=== PATIENT | female | born 1995 | race Caucasian/White ===

== ENCOUNTER 2017-02-28 06:23 | Emergency (ER) | payer BC ==
[2017-02-28 07:37] LABS: Appearance,Urine Clear (Clear); Bilirubin,Urine Negative (Negative); Glucose,Urine (UA) Negative (Negative); Ketones,Urine Trace (Negative); Leukocyte Esterase,Urine Negative (Negative); Nitrite,Urine Negative (Negative); Protein,Urine Negative (Negative); Specific Gravity,Urine 1.003 (1.001-1.035); UA Billing (MACRO vs. MICRO) CHEM; Urobilinogen,Urine <2.0 mg/dL (<2.0)
[2017-02-28] MEDS ORDERED: SODIUM CHLORIDE 0.9% 1,000 ML IV STA (08:10)
--- NOTE | 2017-02-28 08:10 | ED ---
Abdominal Pain HPI - General Chief Complaint: Abdominal Pain Stated Complaint: kidney pain Time Seen by Provider: 02/28/17 07:00 Source: patient, RN notes reviewed Mode of arrival: ambulatory Limitations: no limitations - History of Present Illness Initial Comments: This is a 23-year-old female with a prior history of urinary tract infections who states she's been having urinary symptoms with frequency urgency and kidney pain for the past week or so. She was seen in outpatient clinic yesterday started on Bactrim but she had ALLERGIC reaction to it so quit taking it. She does also states she had fevers chills and sweats yesterday. She also states she has some right lower quadrant abdominal discomfort. No hematuria. No other symptoms are reported. She denies any chance of being her last period was in January. MD Complaint: flank pain - Related Data Home Medications Medication Instructions Recorded Confirmed Phentermine HCl [Adipex-P] 37.5 mg PO QAM 02/28/17 02/28/17 Previous Rx's Medication Instructions Recorded Cephalexin [Keflex] 500 mg PO Q6HR #40 cap 02/28/17 Ibuprofen 800 mg PO Q6HR PRN #20 tablet 02/28/17 Allergies Allergy/AdvReac Type Severity Reaction Status Date / Time sulfamethoxazole Allergy Rash/Hives Verified 02/28/17 07:52 [From Bactrim] trimethoprim [From Bactrim] Allergy Rash/Hives Verified 02/28/17 07:52 Review of Systems ROS Statement: Those systems with pertinent positive or pertinent negative responses have been documented in the HPI. ROS Other: All systems not noted in ROS Statement are negative. Past Medical History Past Medical History: No Reported History History of Any Multi-Drug Resistant Organisms: None Reported Past Surgical History: No Surgical Hx Reported Past Psychological History: No Psychological Hx Reported Smoking Status: Never smoker Past Alcohol Use History: Rare Past Drug Use History: None Reported General Exam - General Exam Comments Initial Comments: This is a well-developed well-nourished awake alert oriented 3 female Limitations: no limitations General appearance: alert, in no apparent distress Head exam: Present: atraumatic, normocephalic, normal inspection Eye exam: Present: normal appearance, PERRL, EOMI. Absent: scleral icterus, conjunctival injection, periorbital swelling ENT exam: Present: normal exam, mucous membranes moist Neck exam: Present: normal inspection. Absent: tenderness, meningismus, lymphadenopathy Respiratory exam: Present: normal lung sounds bilaterally. Absent: respiratory distress, wheezes, rales, rhonchi, stridor Cardiovascular Exam: Present: normal rhythm, tachycardia, normal heart sounds. Absent: systolic murmur, diastolic murmur, rubs, gallop, clicks GI/Abdominal exam: Present: soft, tenderness (Mild suprapubic right and left lower quadrant tenderness no guarding no rebound no definite McBurney point tenderness no Rovsing sign no obturator sign), normal bowel sounds. Absent: distended, guarding, rebound, rigid Rectal exam: Present: deferred Extremities exam: Present: normal inspection, full ROM, normal capillary refill. Absent: tenderness, pedal edema, joint swelling, calf tenderness Back exam: Present: normal inspection, CVA tenderness (R) Neurological exam: Present: alert, oriented X3, CN II-XII intact Psychiatric exam: Present: normal affect, normal mood Skin exam: Present: warm, dry, intact, normal color. Absent: rash Course Vital Signs 02/28/17 06:30 Temperature 98.4 F Pulse Rate 109 H Respiratory 20 Rate Blood Pressure 128/75 O2 Sat by Pulse 98 Oximetry Medical Decision Making - Medical Decision Making I did discuss findings with the patient and family members or present. Patient will be discharged she'll be placed on antibiotics and symptomatically she appears have a urinary tract infection also ibuprofen for pain she is follow-up with her doctor and return when necessary - Lab Data Result diagrams: 02/28/17 07:02 02/28/17 07:02 Lab Results 02/28/17 02/28/17 02/28/17 Range/Units 07:02 07:02 07:02 WBC 8.6 (3.8-10.6) k/uL RBC 4.83 (3.80-5.40) m/uL Hgb 14.5 (11.4-16.0) gm/dL Hct 42.2 (34.0-46.0) % MCV 87.4 (80.0-100.0) fL MCH 30.0 (25.0-35.0) pg MCHC 34.3 (31.0-37.0) g/dL RDW 13.6 (11.5-15.5) % Plt Count 206 (150-450) k/uL Neutrophils % 79 % Lymphocytes % 12 % Monocytes % 6 % Eosinophils % 2 % Basophils % 0 % Neutrophils # 6.8 (1.3-7.7) k/uL Lymphocytes # 1.0 (1.0-4.8) k/uL Monocytes # 0.5 (0-1.0) k/uL Eosinophils # 0.2 (0-0.7) k/uL Basophils # 0.0 (0-0.2) k/uL Sodium 143 (137-145) mmol/L Potassium 4.2 (3.5-5.1) mmol/L Chloride 106 (98-107) mmol/L Carbon Dioxide 24 (22-30) mmol/L Anion Gap 13 mmol/L BUN 5 L (7-17) mg/dL Creatinine 0.67 (0.52-1.04) mg/dL Est GFR (MDRD) Af Amer >60 (>60 ml/min/1.73 sqM) Est GFR (MDRD) Non-Af >60 (>60 ml/min/1.73 sqM) Glucose 87 (74-99) mg/dL Calcium 9.6 (8.4-10.2) mg/dL Total Bilirubin 0.7 (0.2-1.3) mg/dL AST 27 (14-36) U/L ALT 17 (9-52) U/L Alkaline Phosphatase 65 (38-126) U/L Total Protein 8.1 (6.3-8.2) g/dL Albumin 4.5 (3.5-5.0) g/dL Amylase 64 (30-110) U/L Lipase 53 (23-300) U/L Urine Color Light Yellow Urine Appearance Clear (Clear) Urine pH 7.0 (5.0-8.0) Ur Specific Star 1.003 (1.001-1.035) Urine Protein Negative (Negative) Urine Glucose (UA) Negative (Negative) Urine Ketones Trace H (Negative) Urine Blood Negative (Negative) Urine Nitrite Negative (Negative) Urine Bilirubin Negative (Negative) Urine Urobilinogen <2.0 (<2.0) mg/dL Ur Leukocyte Esterase Negative (Negative) Urine HCG, Qual (Not Detectd) 02/28/17 Range/Units 07:02 WBC (3.8-10.6) k/uL RBC (3.80-5.40) m/uL Hgb (11.4-16.0) gm/dL Hct (34.0-46.0) % MCV (80.0-100.0) fL MCH (25.0-35.0) pg MCHC (31.0-37.0) g/dL RDW (11.5-15.5) % Plt Count (150-450) k/uL Neutrophils % % Lymphocytes % % Monocytes % % Eosinophils % % Basophils % % Neutrophils # (1.3-7.7) k/uL Lymphocytes # (1.0-4.8) k/uL Monocytes # (0-1.0) k/uL Eosinophils # (0-0.7) k/uL Basophils # (0-0.2) k/uL Sodium (137-145) mmol/L Potassium (3.5-5.1) mmol/L Chloride (98-107) mmol/L Carbon Dioxide (22-30) mmol/L Anion Gap mmol/L BUN (7-17) mg/dL Creatinine (0.52-1.04) mg/dL Est GFR (MDRD) Af Amer (>60 ml/min/1.73 sqM) Est GFR (MDRD) Non-Af (>60 ml/min/1.73 sqM) Glucose (74-99) mg/dL Calcium (8.4-10.2) mg/dL Total Bilirubin (0.2-1.3) mg/dL AST (14-36) U/L ALT (9-52) U/L Alkaline Phosphatase (38-126) U/L Total Protein (6.3-8.2) g/dL Albumin (3.5-5.0) g/dL Amylase (30-110) U/L Lipase (23-300) U/L Urine Color Urine Appearance (Clear) Urine pH (5.0-8.0) Ur Specific Star (1.001-1.035) Urine Protein (Negative) Urine Glucose (UA) (Negative) Urine Ketones (Negative) Urine Blood (Negative) Urine Nitrite (Negative) Urine Bilirubin (Negative) Urine Urobilinogen (<2.0) mg/dL Ur Leukocyte Esterase (Negative) Urine HCG, Qual Not Detected (Not Detectd) - Radiology Data Radiology results: report reviewed (I did review the imaging and reports no definite acute findings.), image reviewed Disposition Clinical Impression: Cystitis, Renal colic Disposition: HOME SELF-CARE Condition: Good Instructions: Renal Colic (ED), Flank Pain (ED), Urinary Tract Infection in Women (ED) Prescriptions: Cephalexin [Keflex] 500 mg PO Q6HR #40 cap Ibuprofen 800 mg PO Q6HR PRN #20 tablet PRN Reason: Pain Referrals: Arlen Carmichael MD [Primary Care Provider] - 1-2 days
[2017-02-28 08:20] LABS: Basophils % (A) 0 %; CH 29.5; CHCM 33.9; Eosinophils # (A) 0.2 k/uL (0-0.7); Eosinophils % (A) 2 %; HCT 42.2 % (34.0-46.0); HDW 2.64; HGB 14.5 gm/dL (11.4-16.0); Luc # (Auto) 0.09; Luc % (Auto) 1; Lymphocytes % (A) 12 %; MCHC 34.3 g/dL (31.0-37.0); MCV 87.4 fL (80.0-100.0); Mean Platelet Volume 7.7; Monocytes # (A) 0.5 k/uL (0-1.0); Monocytes % (A) 6 %; Neutrophils # (A) 6.8 k/uL (1.3-7.7); Neutrophils % (A) 79 %; RBC 4.83 m/uL (3.80-5.40); RDW 13.6 % (11.5-15.5); WBC 8.6 k/uL (3.8-10.6); WBC (Perox) 8.32
--- NOTE | 2017-02-28 08:39 | XR ---
EXAMINATION TYPE: XR KUB DATE OF EXAM: 02/28/2017 8:23 AM CLINICAL HISTORY: Bilateral flank pain. TECHNIQUE: 2 upright KUB images of the abdomen are obtained. COMPARISON: Abdominal x-ray July 09, 2014. FINDINGS: Scattered gas is seen in non-distended small bowel loops. Gas and fecal material is seen in non-distended colon. There is no visceromegaly, pneumoperitoneum, or abnormal calcification apprecia alberto. The lung bases are clear and the osseous structures are intact. IMPRESSION: Overall nonobstructive bowel gas pattern.
[2017-02-28 08:59] LABS: ALT 17 U/L (9-52); AST 27 U/L (14-36); Alkaline Phosphatase 65 U/L (38-126); Anion Gap 13 mmol/L; Blood Urea Nitrogen 5 mg/dL (7-17); Calcium 9.6 mg/dL (8.4-10.2); Carbon Dioxide 24 mmol/L (22-30); Chloride 106 mmol/L (98-107); Glucose 87 mg/dL (74-99); Non-African American GFR(MDRD) >60 (>60 ml/min/1.73 sqM); Sodium 143 mmol/L (137-145); Total Bilirubin 0.7 mg/dL (0.2-1.3); Total Protein 8.1 g/dL (6.3-8.2)
[2017-02-28 09:11] LABS: Potassium 4.2 mmol/L (3.5-5.1)
[2017-02-28 09:12] LABS: Amylase 64 U/L (30-110)
[2017-02-28] MEDS ORDERED: KETOROLAC 30 MG/ML 1 ML VIAL IVP STA (09:27)
--- NOTE | 2017-02-28 09:54 | CT ---
EXAMINATION TYPE: CT abdomen pelvis wo con DATE OF EXAM: 02/28/2017 COMPARISON: NONE HISTORY: Right sided abdominal pain CT DLP: 901 mGycm Automated exposure control for dose reduction was used. TECHNIQUE: Helical acquisition of images from the lung bases through the pelvis. FINDINGS: Lack of contrast could compromise sensitivity LUNG BASES: No significant abnormality is appreciated. AORTA: No significant abnormality is appreciataed. LIVER/GB: No significant abnormality is appreciated. PANCREAS: No significant abnormality is seen. SPLEEN: No focal mass. ADRENALS: No significant abnormality is seen. KIDNEYS: No significant abnormality is seen. REPRODUCTIVE ORGANS: No significant abnormality is seen. URINARY BLADDER: No significant abnormality is seen. BOWEL: Luminal high density within the appendix present, there is no inflammatory change or distenti on however. FREE AIR: No Free Air is visible. ASCITES: Minimal free fluid present within the pelvis. This may be physiologic. PELVIC ADENOPATHY: None visualized. RETROPERITONEAL ADENOPATHY: No Retroperitoneal Adenopathy visible. OSSEOUS STRUCTURES: No significant abnormality is seen. IMPRESSION: NONSPECIFIC FINDINGS DESCRIBED ABOVE.
[2017-02-28 10:43] VITALS: BP 122/59; PULSE 83; RESP 18; TEMP 98.3
== END 2017-02-28 10:43 | disposition home or self-care (01) ==
LOC: EC 06:23
DX: N30.90 Cystitis, unspecified without hematuria (principal); N23 Unspecified renal colic; Z79.899 Other long term (current) drug therapy; Z88.2 Allergy status to sulfonamides
CPT/HCPCS: 36415; 80053; 82150; 83690; 85025; 81003; 81025; 87086; 74000; 74176; 99284; 96374; 96361 ×2; J1885

== ENCOUNTER 2017-11-18 09:18 | Outpatient (CLI) | payer BC ==
[2017-11-18 11:27] VITALS: BP 141/82; PULSE 88; RESP 16; TEMP 98.1
--- NOTE | 2017-11-18 13:50 | P.MSEPDOC ---
Presenting Problems - Arrival Data Date of Arrival on Unit: 11/18/17 Time of Arrival on Unit: 09:30 Mode of Transport: Ambulatory - Complaint OB-Reason for Admission/Chief Complaint: Possible Onset of Labor Medical History - Information : 1 Para: 0 Term: 0 : 0 Abortions: Spontaneous or Elective: 0 Number of Living Children: 0 - Gestational Age Gestational Age by PRINCESS (wks/days): 34 Weeks and 5 Days - History Complications: Multiple Review of Systems - Review of Systems Constitutional: No problems Breast: No problems ENT: No problems Cardiovascular: No problems Respiratory: No problems Gastrointestinal: No problems Genitourinary: No problems Musculoskeletal: No problems Neurological: No problems Skin: No problems Vital Signs - Temperature Temperature: 98.1 F Temperature Source: Tympanic - Pulse Right Brachial Pulse Rate: 88 Pulse Assessment Method: Automatic Cuff - Respirations Respiratory Rate: 16 Oxygen Delivery Method: Room Air - Blood Pressure Right Arm Blood Pressure: 141/82 Blood Pressure Mean: 101 Blood Pressure Source: Automatic Cuff Medical Screen Scoring (Pre) - Cervical Exam Dilation: 0 cm = 0 Membranes: Intact - Uterine Contractions Frequency: > 5 minutes apart = 1 Duration: N/A Intensity: N/A - Maternal Vital Signs Maternal Temperature: N/A Maternal Blood Pressure: N/A Signs of Preeclampsia: N/A Maternal Respirations: N/A - Pain Assessment Pain Location and Character: Abdomen Pain Scale Used: Numeric (1 - 10) Pain Intensity: 3 Pain Management Goal: 2 Pain Description: *Acute Pain Radiation Location: na Pain Frequency: Intermittent Pain Duration: 1 Pain Duration Units: Minutes Pain Behavior: Vocalization Pain Aggravating Factors: None Non-Pharmacological Interventions: Position/Reposition, Reduce Environmental Stimuli - Maternal Trauma Maternal Trauma: N/A - Assessment Baseline FHR: 150 Heart Rate - NICHD Category: Category I (Normal) = 0 NST: Reactive Position: N/A Station: N/A - Total Score Total Score (Pre): 1 - Level of Risk Level of Risk: N/A Physician Notification (Pre) - Physician Notified Physician Notified Date: 11/18/17 Physician Notified Time: 10:40 Physician/Practitioner Notifed:: Dr. Garnica Spoke With: Dr. Garnica New Order Received: Yes - Notification Comment Comment: d/c home Disposition - Disposition OB Disposition: Discharge to home Discharge Date: 11/18/17 Discharge Time: 10:45 I agree with the RN Medical Screening Exam: Yes Risk & Benefit of care provided described in d/c instruction: Yes Diagnosis: FALSE LABOR BEFORE 37 COMPLETED WEEKS OF GEST, THIRD TRI
== END 2017-11-18 10:45 | disposition home or self-care (01) ==
LOC: FBPOP 09:18
PROVIDERS: ATTEND Obstetrics & Gynecology Obstetrics
DX: O47.1 False labor at or after 37 completed weeks of gestation (principal); Z3A.34 34 weeks gestation of pregnancy
CPT/HCPCS: 59025; 96360; 99214

== ENCOUNTER 2017-12-01 16:17 | Inpatient (IN) | payer BC, OTHER ==
[2017-12-01 17:25] LABS: Basophils % (A) 0 %; Eosinophils % (A) 1 %; HCT 30.3 % (34.0-46.0); HGB 9.9 gm/dL (11.4-16.0); Hypochromasia Slight; Lymphocytes # (A) 1.1 k/uL (1.0-4.8); Lymphocytes % (A) 14 %; MCHC 32.8 g/dL (31.0-37.0); MCV 82.4 fL (80.0-100.0); Mean Platelet Volume 9.7; Monocytes # (A) 0.4 k/uL (0-1.0); Monocytes % (A) 5 %; Neutrophils # (A) 6.3 k/uL (1.3-7.7); Neutrophils % (A) 79 %; Platelet Count 170 k/uL (150-450); RBC 3.68 m/uL (3.80-5.40); RDW 15.6 % (11.5-15.5)
[2017-12-01 17:32] LABS: Uric Acid 5.5 mg/dL (3.7-7.4)
[2017-12-01] MEDS ORDERED: LACTATED RINGERS 1,000 ML IV ONE (18:00)
[2017-12-01] MEDS ORDERED: CITRIC ACID-SODIUM CITRATE 15 ML CUP PO ONE (18:00)
[2017-12-01] MEDS ORDERED: ceFAZolin IN SWFI 2 GM/20 ML SYRINGE IVP ONE (18:00)
[2017-12-01 18:27] VITALS: BMI 38.3
[2017-12-01] MEDS ORDERED: NALBUPHINE 10 MG/ML AMPUL ONE (19:13)
[2017-12-01] MEDS ORDERED: DEXAMETHASONE SOD PHOS (MDV) 100 MG/10 ML VIAL ONE (19:13)
[2017-12-01] MEDS ORDERED: KETOROLAC 30 MG/ML 1 ML VIAL ONE (19:13)
[2017-12-01] MEDS ORDERED: diphenhydrAMINE 50 MG/ML 1 ML VIAL ONE (19:13)
[2017-12-01] MEDS ORDERED: OXYTOCIN 10 UNIT/ML 1 ML VIAL ONE (19:13)
[2017-12-01] MEDS ORDERED: fentaNYL (PF) 50 MCG/ML 2 ML AMP ONE (19:13)
[2017-12-01] MEDS ORDERED: ONDANSETRON 4 MG/2 ML VIAL ONE (19:13)
[2017-12-01] MEDS ORDERED: MORPHINE SULFATE (PF) 0.3 MG/0.3 ML SYR ONE (19:13)
--- NOTE | 2017-12-01 19:15 | P.HPOB ---
History of Present Illness H&P Date: 12/01/17 Chief Complaint: Headache, "I don't feel good" This is a 22-year-old white female 1 para 0 EDC 12/25/2017 at 36-4/7 weeks' gestation. Patient has a known twin gestation, breech vertex. Yesterday the office her blood pressure was noted to be elevated, therefore 24- hour urine collection was started along with labs ordered. Today the patient return to the office for the 24-hour urine collection, and noted that she had a headache and did not feel well. She denied visual changes or right upper quadrant pain. Both fetuses have been active. She was sent to labor and delivery for further blood pressure monitoring. Blood pressures here have varied from 139/86 on admission, 155/89, 161/101, and recently 170/98. Decision has been made at this time to proceed with primary low transverse section for breech vertex presentation of twins and severe preeclampsia. Past medical history is significant for heart murmur, asthma, and chronic constipation. Past surgical history negative. Current medications dye clean just in the first trimester, vitamin daily, probiotics daily. ALLERGIES include Bactrim to which reports an itchy fever and sweating. Family history significant for pancreatic cancer in the maternal grandmother. Social history patient is single, her boyfriend Grady is involved in the , met he lives locally, has never been a smoker and denies alcohol use. history is significant for blood type A+, rubella status immune. Hepatitis B surface antigen negative, HIV testing negative, gonorrhea and chlamydia cultures negative, Pap smear negative, urine culture negative. Most recent ultrasound reveals breech vertex presentation, good growth, normal amniotic fluid index, reactive NSTs on both babies. On exam this is a pleasant white female, she is 5 foot 6.25 inches, 250 pounds, patient is afebrile. Most recent blood pressure 170/98. The general physical exam is within normal limits. The chest is clear in all mclain. Extremities reveal 2+ edema. There are 2+ reflexes noted. Fetuses are breech, vertex. Cervix is 2 cm dilated, 70% effaced, intact membranes. Cardiac exam reveals regular rate and rhythm. Labs include uric acid 5.5, AST 20, ALTs 25, platelets 170,000. Impression: Diamniotic dichorionic twin gestation at 36-4/7 weeks' gestation, with severe preeclampsia. Breech vertex presentation. Plan: We will proceed with primary low transverse section. The risks benefits and alternatives are all discussed. We will utilize magnesium sulfate after closure of the uterus. All questions of the patient, boyfriend and her mother are answered. Review of Systems Constitutional: Reports as per HPI Ears, nose, mouth and throat: Reports headache Past Medical History Past Medical History: No Reported History Additional Past Medical History / Comment(s): anxiety History of Any Multi-Drug Resistant Organisms: None Reported Past Surgical History: No Surgical Hx Reported Past Psychological History: No Psychological Hx Reported Smoking Status: Never smoker Past Alcohol Use History: Rare Past Drug Use History: None Reported - Past Family History Mother History Unknown: Yes Medications and Allergies Home Medications Medication Instructions Recorded Confirmed Type Pnv No.95/Ferrous Fum/Folic AC 1 tab PO DAILY 12/01/17 12/01/17 History [ Multivitamin Tablet] Allergies Allergy/AdvReac Type Severity Reaction Status Date / Time sulfamethoxazole Allergy Rash/Hives Verified 12/01/17 16:30 [From Bactrim] trimethoprim [From Bactrim] Allergy Rash/Hives Verified 12/01/17 16:30 Exam - Vital Signs Vital signs: Vital Signs Temp Pulse Resp BP Pulse Ox 12/01/17 16:35 98.1 F 82 16 139/86 100 Intake and Output 12/01/17 12/01/17 12/01/17 06:59 14:59 22:59 Other: Weight 111.13 kg See dictation under HPI please Results Result Diagrams: 12/01/17 17:01 Abnormal Lab Results - Last 24 Hours (Table) 12/01/17 Range/Units 17:01 RBC 3.68 L (3.80-5.40) m/uL Hgb 9.9 L (11.4-16.0) gm/dL Hct 30.3 L (34.0-46.0) % RDW 15.6 H (11.5-15.5) % Assessment and Plan Assessment: Severe preeclampsia based on blood pressure parameters, and maternal headache. Twin gestation, breech vertex presentation, at 36-4/7 weeks' gestation. Plan: For primary low transverse section now. Magnesium sulfate prophylaxis upon closure of the uterus. All risks, benefits and alternatives discussed in detail. Time with Patient: Greater than 30
[2017-12-01] MEDS ORDERED: MAGNESIUM SULFATE-WATER PMX 4 GM in WATER FOR INJECTION 1 50ML.BAG IVPB ONE (19:21)
[2017-12-01 19:26] LABS: Collection Time,Urine 24 hrs
[2017-12-01 19:27] LABS: Total Volume 24 Hour,Urine 1350 mls (800-1800)
[2017-12-01 19:41] LABS: Creatinine 24 Hour,Urine 1532.3 mg/24hr (800.0-1800.0)
[2017-12-01 19:52] LABS: Total Protein 24 Hour,Urine 8100 mg/24hr (42.0-225.0)
[2017-12-01] MEDS ORDERED: ACETAMINOPHEN TAB 325 MG TAB PO PRN (20:20)
[2017-12-01] MEDS ORDERED: diphenhydrAMINE 50 MG CAP PO PRN (20:20)
[2017-12-01] MEDS ORDERED: ONDANSETRON 4 MG/2 ML VIAL IVP PRN (20:20)
[2017-12-01] MEDS ORDERED: ZOLPIDEM 5 MG TAB PO PRN (20:20)
[2017-12-01] MEDS ORDERED: diphenhydrAMINE 50 MG/ML 1 ML VIAL IVP PRN ×2 (20:20)
[2017-12-01] MEDS ORDERED: METOCLOPRAMIDE 5 MG/ML 2 ML VIAL IVP PRN (20:20)
[2017-12-01] MEDS ORDERED: diphenhydrAMINE 25 MG CAP PO PRN (20:20)
[2017-12-01] MEDS ORDERED: NALOXONE 0.4 MG/ML 1 ML VIAL IV PRN (20:20)
--- NOTE | 2017-12-01 20:20 | P.OP ---
Date of Procedure: 12/01/17 Preoperative Diagnosis: 36-4/7 weeks' gestation, known twin gestation, severe preeclampsia, breech vertex presentation Postoperative Diagnosis: Liveborn female baby A, breech presentation, 6 lbs. 2 oz., Apgars 8 and 9. Liveborn baby B, vertex presentation, male, 5 lbs. 3 oz., scores 9 and 9. Procedure(s) Performed: Primary low transverse section Anesthesia: spinal Surgeon: Gosia De La Vega Executive Chairman Of The Board #1: Craig Coppola Estimated Blood Loss (ml): 750 IV fluids (ml): 1,100 Urine output (ml): 150 Pathology: other (Placentas) Condition: stable Disposition: PACU Description of Procedure: Patient presented from the office with increased proteinuria, severe headache, and "not feeling good". Blood pressures were monitored over several hours, they elevated to 161/101, 170/98. Decision was made to proceed with primary low transverse section. This is a known dichorionic diamniotic with reach vertex presentations. Please see my dictated history and physical for details. Patient was brought to the [facility] and suite and a spinal with Duramorph is placed. She was then put in the dorsal supine position with left lateral uterine displacement. Clarke catheter placed to direct drainage. The appropriate timeout is performed to assure proper patient and procedural identification. The abdomen is prepped and draped in usual sterile fashion. The analgesia is checked and noted to be adequate. Antibiotics are given. A low transverse skin incision is made in this is carried down through the subcutaneous tissue. Fascia is isolated, scored, and extended bilaterally with curved Graves scissors. Peritoneum is next identified and incised, there is no bowel or bladder involvement. Bladder flap was created with Metzenbaum scissors and at all times the bladder is Well from the operative field to avoid bladder and/or ureteral injury. The large ring disposable retractors placed for excellent visualization. A low transverse uterine incision is made in this is carried down to the amniotic membranes. Artificial amniorrhexis reveals clear fluid. Baby B is delivered first, vertex presentation. There is no nuchal cord noted. Patient is officially delivered of a liveborn male at 1935 hrs. Umbilical cord is doubly clamped and ligated, he is handed to waiting nurses for evaluation where scores of 9 and 9 at one and 5 minutes respectively are given. He weighs 5 lbs. 3 oz. or 2340 g. At this time artificial amniorrhexis of baby B is performed. Clear fluid is noted. Infant is delivered in the breech presentation. Sacrum is rotated anterior. Bilateral lower extremities are delivered with a Pinard maneuver. A blue towel was wrapped over the abdomen. Over rotation is performed in the upper extremities are easily delivered. Infant's head is delivered flexed. Officially patient delivers her liveborn female at 1936 hrs. Umbilical cord is doubly clamped and ligated, she is handed to waiting nurses for evaluation where scores of 8 and 9 at one and 5 minutes respectively are given. The placentas delivered spontaneously, and sent to pathology for evaluation. The uterus is then externalized and massaged. It is wiped clean with a sterile sponge to avoid any retained products of conception. Hemostasis was very good. The edges of the incision are grasped with Choi clamps. The uterus is closed in a two-step fashion first layer running locking with 0 Vicryl, second layer with imbricated stitch again with 0 Vicryl. Bilateral tubes and ovaries are inspected and noted to be normal. Abdomen is suctioned with suction on guard. Uterus is gently placed back into the abdominal cavity. Bilateral gutters are inspected and cleaned. The incision is once again inspected and noted to be hemostatically intact. Peritoneum was allowed to close by secondary intention. Fascia is closed in a running stitch of 0 Vicryl with over ligation in the midline. Subcutaneous tissue is irrigated, noted to be clean and dry. It is reapproximated with 3-0 Vicryl in a running stitch. 4-0 undyed Monocryl issues for final skin closure. Steri-Strips and Mastisol are applied to the wound. All sponge needle and enhancement counts are correct at the end of this procedure. Clarke is noted to be draining clear urine. Blood pressure upon leaving the operating room was 140/75, pulse 91, 99% O2 saturation. Patient brought back to the recovery room in very good condition. Magnesium sulfate has been ordered, a bolus will be given now, and it was running at 2 g per hour through the night. Patient is requesting circumcision for her infant son.
[2017-12-01] MEDS: MAGNESIUM SULFATE-WATER PMX 20 GM in WATER FOR INJECTION 1 500ML.BAG IV SCH (20:59)
--- NOTE | 2017-12-02 06:51 | P.PN ---
Progress Note - Text Date:12/02 Time:630 Patient is status post . Patient seen this morning with VAS score of 3. c/o of pruritus on her face, c/o nausea/vomiting, comfortable and doing better.
[2017-12-02 06:56] LABS: Basophils % (A) 0 %; Eosinophils % (A) 0 %; HCT 31.3 % (34.0-46.0); HGB 10.3 gm/dL (11.4-16.0); Hypochromasia Slight; Lymphocytes # (A) 1.1 k/uL (1.0-4.8); Lymphocytes % (A) 6 %; MCH 27.1 pg (25.0-35.0); MCHC 32.9 g/dL (31.0-37.0); MCV 82.4 fL (80.0-100.0); Mean Platelet Volume 10.3; Monocytes # (A) 0.7 k/uL (0-1.0); Monocytes % (A) 4 %; Neutrophils # (A) 15.4 k/uL (1.3-7.7); Neutrophils % (A) 89 %; Platelet Count 185 k/uL (150-450); RDW 15.1 % (11.5-15.5); WBC 17.3 k/uL (3.8-10.6)
[2017-12-02] MEDS: MAGNESIUM SULFATE-WATER PMX 20 GM in WATER FOR INJECTION 1 500ML.BAG IV SCH ×2 (07:19→20:21)
--- NOTE | 2017-12-02 08:31 | P.PN ---
Subjective Progress Note Date: 12/02/17 Principal diagnosis: post operative day #1 no flatus Objective - Vital Signs Vital signs: Vital Signs Temp 98.5 F 12/02/17 04:00 Pulse 77 12/02/17 04:00 Resp 16 12/02/17 04:00 BP 155/83 12/02/17 04:00 Pulse Ox 99 12/02/17 04:00 Intake & Output 12/01/17 12/02/17 12/02/17 18:59 06:59 18:59 Intake Total 500 Output Total 1050 Balance -550 Weight 111.13 kg Intake: Intake, IV Titration 500 Amount Magnesium Sulfate-Water 500 Pmx 20 gm In Water For Injection 1 500ml.bag @ 2 GM/HR 50 mls/hr IV .Q10H ALIX Rx#:[id number] Output: Urine 1050 Other: Voiding Method Indwelling Catheter - Constitutional General appearance: Present: average body habitus, cooperative - EENT Eyes: Present: PERRLA ENT: Present: hearing grossly normal - Neck Thyroid: bilateral: normal size - Respiratory Respiratory: bilateral: CTA - Cardiovascular Rhythm: regular - Gastrointestinal General gastrointestinal: Present: decreased bowel sounds - Genitourinary Genitourinary Comment(s): uterus firm, nontender, mobile, 18 week size - Integumentary Integumentary Comment(s): incision clean and dry, intact Integumentary: Present: normal - Neurologic Neurologic Comment(s): reflexes +1, no clonus Neurologic: Present: CNII-XII intact - Musculoskeletal Musculoskeletal: Present: strength equal bilaterally - Psychiatric Psychiatric: Present: A&O x's 3, appropriate affect, intact judgment & insight - Labs CBC & Chem 7: 12/02/17 06:33 Labs: Abnormal Lab Results - Last 24 Hours (Table) 12/01/17 12/01/17 12/02/17 Range/Units 15:20 17:01 06:33 WBC 17.3 H (3.8-10.6) k/uL RBC 3.68 L (3.80-5.40) m/uL Hgb 9.9 L 10.3 L (11.4-16.0) gm/dL Hct 30.3 L 31.3 L (34.0-46.0) % RDW 15.6 H (11.5-15.5) % Neutrophils # 15.4 H (1.3-7.7) k/uL U Tot Protein 24h, Calc 8100 H (42.0-225.0) mg/24hr Assessment and Plan Assessment: doing well post op day #1 Plan: slowly decrease Mg dosage tonight. Advance diet as (+) flatus commences Time with Patient: Less than 30
[2017-12-02] MEDS: SENNOSIDES-DOCUSATE SODIUM 1 EACH TAB PO SCH ×2 (12:20→20:22)
[2017-12-02] MEDS: IBUPROFEN 600 MG TAB PO PRN ×2 (12:40→20:22)
[2017-12-02] MEDS: HYDROcodone/APAP 7.5-325MG 1 EACH TAB PO PRN ×2 (14:12→23:25)
[2017-12-03] MEDS: LACTATED RINGERS 1,000 ML IV SCH ×8 (00:47→19:55)
[2017-12-03] MEDS: IBUPROFEN 600 MG TAB PO PRN ×2 (06:33→15:39)
[2017-12-03] MEDS: MAGNESIUM SULFATE-WATER PMX 20 GM in WATER FOR INJECTION 1 500ML.BAG IV SCH ×3 (07:01→19:54)
[2017-12-03] MEDS: SENNOSIDES-DOCUSATE SODIUM 1 EACH TAB PO SCH ×2 (07:24→19:48)
[2017-12-03] MEDS: HYDROcodone/APAP 7.5-325MG 1 EACH TAB PO PRN (10:34)
--- NOTE | 2017-12-03 15:33 | P.PN ---
Subjective Progress Note Date: 12/03/17 Principal diagnosis: Postoperative day number two Positive flatus, positive bowel movement. No headache, visual changes or right upper quadrant pain. Feeling better. Objective - Vital Signs Vital signs: Vital Signs Temp 97.0 F L 12/03/17 12:00 Pulse 88 12/03/17 12:00 Resp 17 12/03/17 12:00 BP 150/89 12/03/17 12:00 Pulse Ox 99 12/03/17 12:00 Intake & Output 12/02/17 12/03/17 12/03/17 18:59 06:59 18:59 Intake Total 600 Output Total 2400 Balance -1800 Intake: Intake, IV Titration 500 Amount Lactated Ringers 1,000 ml 300 @ 125 mls/hr IV .Q8H ALIX Rx#:[id number] Magnesium Sulfate-Water 200 Pmx 4 gm In Water For Injection 1 50ml.bag @ 150 mls/hr IVPB ONCE ONE Rx#:[id number] Oral 100 Output: Urine 2300 Uretheral (Clarke) 800 Emesis 100 Other: Voiding Method Indwelling Catheter # Voids 1 1 2 # Emeses 2 - Constitutional General appearance: Present: average body habitus, cooperative - EENT Eyes: Present: PERRLA ENT: Present: hearing grossly normal - Neck Neck: Present: normal ROM Thyroid: bilateral: normal size - Respiratory Respiratory: bilateral: CTA - Cardiovascular Rhythm: regular - Gastrointestinal Gastrointestinal Comment(s): Incision clean and dry, intact, Steri-Strips applied. Fundus firm, midline, symmetric, 18 week size. Moderate to milnimal lochia rubra General gastrointestinal: Present: normal bowel sounds - Neurologic Neurologic: Present: CNII-XII intact - Musculoskeletal Musculoskeletal: Present: strength equal bilaterally - Psychiatric Psychiatric: Present: A&O x's 3, appropriate affect, intact judgment & insight - Labs CBC & Chem 7: 12/02/17 06:33 Assessment and Plan Plan: Continue postoperative care. Likely circumcision tomorrow morning. Continue blood pressure monitoring. Time with Patient: Less than 30
[2017-12-04] MEDS: IBUPROFEN 600 MG TAB PO PRN ×4 (00:20→22:53)
[2017-12-04] MEDS: MAGNESIUM SULFATE-WATER PMX 20 GM in WATER FOR INJECTION 1 500ML.BAG IV SCH (03:21)
[2017-12-04] MEDS: SENNOSIDES-DOCUSATE SODIUM 1 EACH TAB PO SCH (09:32)
[2017-12-04] MEDS: LABETALOL 100 MG TAB PO SCH ×2 (09:32→21:10)
--- NOTE | 2017-12-04 13:07 | P.PN ---
Subjective Progress Note Date: 12/04/17 Principal diagnosis: Postoperative day #3 Slept well. No headache, visual changes, or right upper quadrant pain. No complaints of pain. Objective - Vital Signs Vital signs: Vital Signs Temp 97.3 F L 12/04/17 08:30 Pulse 79 12/04/17 08:30 Resp 15 12/04/17 08:30 BP 152/85 12/04/17 08:40 Pulse Ox 100 12/04/17 00:00 Intake & Output 12/03/17 12/04/17 12/04/17 18:59 06:59 18:59 Other: # Voids 2 - Constitutional General appearance: Present: average body habitus, cooperative - EENT Eyes: Present: PERRLA ENT: Present: hearing grossly normal - Neck Neck: Present: normal ROM - Respiratory Respiratory: bilateral: CTA - Cardiovascular Rhythm: regular - Gastrointestinal General gastrointestinal: Present: normal bowel sounds - Genitourinary Genitourinary Comment(s): Incision clean and dry, intact, Steri-Strips applied. Fundus firm, symmetric, 18 week size, midline, nontender. - Integumentary Integumentary: Present: normal - Neurologic Neurologic: Present: CNII-XII intact - Musculoskeletal Musculoskeletal: Present: gait normal, strength equal bilaterally - Psychiatric Psychiatric: Present: A&O x's 3, appropriate affect, intact judgment & insight - Labs CBC & Chem 7: 12/02/17 06:33 Assessment and Plan Plan: Continue postoperative care. Labetalol started this morning for continued hypertension. Pending blood pressure progress, likely discharge home tomorrow. Circumcision performed, baby is doing well. Time with Patient: Less than 30
[2017-12-05] MEDS: SENNOSIDES-DOCUSATE SODIUM 1 EACH TAB PO SCH (02:25)
[2017-12-05] MEDS: MAGNESIUM SULFATE-WATER PMX 20 GM in WATER FOR INJECTION 1 500ML.BAG IV SCH ×2 (02:25→02:26)
[2017-12-05 02:45] VITALS: RESP 18; TEMP 98.6
[2017-12-05] MEDS: IBUPROFEN 600 MG TAB PO PRN ×2 (07:55→14:13)
[2017-12-05] MEDS: LABETALOL 100 MG TAB PO SCH (07:56)
--- NOTE | 2017-12-05 08:19 | P.DS ---
Providers Date of admission: 12/01/17 17:56 Expected date of discharge: 12/05/17 Attending physician: Gosia De La Vega Primary care physician: Stated None Hospital Course: This is a 22-year-old white female 1 para 0 EDC 12/25/2017 at 36-4/7 weeks who presented with known twin gestation, and hypertension. She was noted to have 4+ protein in the office, and presented with a headache and not feeling well. Blood pressures were monitored and went to the 170s over 100 range. Decision was made to proceed with primary low transverse section, infant in the breech vertex presentation. Please see my dictated history and physical for details. Patient underwent a primary low transverse section and gave to a liveborn female , baby girl weighing 6 lbs. 2 oz. or 2780 g with scores of 8 and 9, baby boy weighing 5 lbs. 3 oz. or 2340 g scores 9 and 9. Please see dictated operative note for details. Total estimated blood loss 750 mL's. Magnesium sulfate was given postoperatively for 24 hours for seizure prophylaxis. Her blood pressure remained elevated, and therefore labetalol was started, 100 mg orally twice daily. This morning the patient appears to be greatly improved. Her edema has improved, she is voiding frequently. Her reflexes are normal. Her chest is clear in all mclain. The incision is clean and dry, intact, Steri-Strips applied. Fundus is firm, midline, symmetric and 18 week size. Blood pressures over the night went to the 120s over 60s range, slightly higher this morning. Patient denies headache visual changes or right upper quadrant pain. She is judged to be in good condition for discharge home. Breasts are not engorged, breast-feeding is doing well. 's are also stable for discharge. She will continue the labetalol 100 mg twice daily, prescription is provided. I have given her a prescription for breast pump as well. She is reminded no intercourse, tampons or douching. She has a blood pressure monitoring cuff at home, and will take her blood pressures daily. She will call me if they are consistently above the 140s over 90s range, or if she develops any headache, visual changes or right upper quadrant pain. She will call with any fevers shakes or chills, foul smelling or copious lochia, with the passage of large blood clots, with any pain not alleviated by [id number] products. I've asked her to use Advil, Aleve, or Motrin 200 mg pills, 3 every 6 hours as needed. We have briefly discussed options for contraception and we'll discuss this further in the office. Incisional care is reviewed. Patient Condition at Discharge: Good Plan - Discharge Summary New Discharge Prescriptions: No Action Pnv No.95/Ferrous Fum/Folic AC [ Multivitamin Tablet] 1 tab PO DAILY Discharge Medication List Pnv No.95/Ferrous Fum/Folic AC [ Multivitamin Tablet] 1 tab PO DAILY [History] Follow up Appointment(s)/Referral(s): Gosia De La Vega MD [STAFF PHYSICIAN] - 1 Week Discharge Disposition: HOME SELF-CARE
[2017-12-05 08:22] VITALS: BP 151/84; PULSE 89
== END 2017-12-05 15:57 | disposition home or self-care (01) | DRG 765 ==
LOC: FBPOP 16:17 → 4FBP 17:56
PROVIDERS: ADMIT Obstetrics & Gynecology; ATTEND Obstetrics & Gynecology
PROC: 10D00Z1 Extraction of Products of Conception, Low, Open Approach (ICD-10-PCS; principal; 2017-12-01 19:15)
DX: O14.14 Severe pre-eclampsia complicating childbirth (principal); O30.043 Twin pregnancy, dichorionic/diamniotic, third trimester; O32.1XX0 Maternal care for breech presentation, not applicable or unspecified; O99.62 Diseases of the digestive system complicating childbirth; K21.9 Gastro-esophageal reflux disease without esophagitis; Z3A.36 36 weeks gestation of pregnancy; Z37.2 Twins, both liveborn; Z88.2 Allergy status to sulfonamides
CPT/HCPCS: 59025; 81050; 82570; 84156; 84450; 84460; 84550; 85025; 88307; 99215

== ENCOUNTER 2024-04-10 10:35 | Emergency (ER) | payer OTHER ==
[2024-04-10 11:33] LABS: Appearance,Urine Clear (Clear); Bilirubin,Urine Negative (Negative); Blood,Urine Negative (Negative); Color,Urine Colorless; Glucose,Urine (UA) Negative (Negative); Ketones,Urine Negative (Negative); Leukocyte Esterase,Urine Negative (Negative); Nitrite,Urine Negative (Negative); Protein,Urine Negative (Negative); Specific Gravity,Urine 1.002 (1.001-1.035); Urobilinogen,Urine <2.0 mg/dL (<2.0)
[2024-04-10 11:34] LABS: Basophils % (A) 0 %; Eosinophils # (A) 0.1 k/uL (0-0.7); Eosinophils % (A) 1 %; HCT 45.2 % (34.0-46.0); HGB 14.9 gm/dL (11.4-16.0); Lymphocytes # (A) 1.2 k/uL (1.0-4.8); Lymphocytes % (A) 19 %; MCH 30.4 pg (25.0-35.0); MCHC 32.9 g/dL (31.0-37.0); MCV 92.4 fL (80.0-100.0); Mean Platelet Volume 8.5; Monocytes # (A) 0.3 k/uL (0-1.0); Monocytes % (A) 5 %; Neutrophils # (A) 4.5 k/uL (1.3-7.7); Neutrophils % (A) 74 %; Platelet Count 203 k/uL (150-450); RBC 4.89 m/uL (3.80-5.40); RDW 13.7 % (11.5-15.5); WBC 6.1 k/uL (3.8-10.6)
--- NOTE | 2024-04-10 11:47 | ED ---
Back Pain HPI - General Chief Complaint: Recheck/Abnormal Lab/Rx Stated Complaint: Possible miscarriage and kidney infection Time Seen by Provider: 04/10/24 11:03 Source: patient, family, RN notes reviewed Limitations: no limitations - History of Present Illness Initial Comments: This is a 29-year-old female who presents to the emergency department for back pain and urinary symptoms. On 03/12 she was having urinary symptoms and went to urgent care and was diagnosed with a UTI. She completed antibiotic treatment, but states that she is still having symptoms on and off. She has pain in her lower back as well. She contacted urgent care who advised she go to the emergency department for further evaluation, as she states that she is about 6 weeks . She is having pain in the belly as well as the back and states that urgent care recommended she be evaluated for a possible miscarriage. Denies any vaginal bleeding. Most recent was 7 years ago and at that point she had twins. Denies any pregnancies between now and then. Believes that she is about 6 weeks and is waiting for an appointment with [facility] IMAGING TECHNOLOGIST. Complaint: back pain - Related Data Home Medications Medication Instructions Recorded Confirmed No Known Home Medications 07/22/22 08/27/22 Allergies Allergy/AdvReac Type Severity Reaction Status Date / Time sulfamethoxazole Allergy Rash/Hives Verified 04/10/24 10:55 [From Bactrim] trimethoprim [From Bactrim] Allergy Rash/Hives Verified 04/10/24 10:55 Review of Systems ROS Statement: Those systems with pertinent positive or pertinent negative responses have been documented in the HPI. ROS Other: All systems not noted in ROS Statement are negative. Past Medical History Past Medical History: No Reported History Additional Past Medical History / Comment(s): anxiety History of Any Multi-Drug Resistant Organisms: None Reported Past Surgical History: Section Past Anesthesia/Blood Transfusion Reactions: Postoperative Nausea & Vomiting (PONV) Past Psychological History: Anxiety Smoking Status: Never smoker Past Alcohol Use History: Occasional Past Drug Use History: Marijuana - Past Family History Mother History Unknown: Yes General Exam Limitations: no limitations General appearance: alert, in no apparent distress Head exam: Present: atraumatic, normocephalic, normal inspection Respiratory exam: Present: normal lung sounds bilaterally. Absent: respiratory distress, wheezes, rales, rhonchi, stridor Cardiovascular Exam: Present: regular rate, normal rhythm, normal heart sounds. Absent: systolic murmur, diastolic murmur, rubs, gallop, clicks Back exam: Absent: CVA tenderness (R), CVA tenderness (L) Neurological exam: Present: alert, oriented X3, CN II-XII intact Psychiatric exam: Present: normal affect, normal mood Skin exam: Present: warm, dry, intact, normal color. Absent: rash Course Vital Signs 04/10/24 04/10/24 04/10/24 10:51 13:16 13:21 Temperature 98 F 98.4 F Pulse Rate 101 H 96 Respiratory 18 19 Rate Blood Pressure 131/88 144/89 O2 Sat by Pulse 100 100 Oximetry Medical Decision Making - Medical Decision Making This is a 29 year old female who presents to the emergency department for back pain and urinary symptoms. Was pt. sent in by a medical professional or institution? @ -No Did you speak to anyone other than the patient for history? @ -No Did you review nursing and triage notes? @ -Yes, and I agree, it is accurate with regards to the patient's symptoms. Were old charts reviewed? @ -No Differential Diagnosis? @ -Differential Back Pain: Strain, zoster, cauda equina syndrome, epidural abscess, vertebral osteomyelitis, discitis, fracture, subluxation, disc herniation, DJD, spinal stenosis, dissection, AAA, pancreatitis, peptic ulcer disease, pyelonephritis, kidney stone, this is not meant to be an all-inclusive list. EKG interpreted by me (3pts min.)? @ -Not obtained X-rays interpreted by me (1pt min.)? @ -Not obtained CT interpreted by me (1pt min.)? @ -Not obtained U/S interpreted by me (1pt. min.)? @ -OB ultrasound obtained. My interpretation identifies 2 possible gestational sacs. What testing was considered but not performed? (CT, X-rays, U/S, labs)? Why? @ -None What meds were considered but not given? Why? @ -None Did you discuss the management of the patient with other professionals? @ -No Did you reconcile home meds? @ -No Was smoking cessation discussed for >3mins.? @ -No Was critical care preformed (if so, how long)? @ -No Were there social determinants of health that impacted care today? How? (Homelessness, low income, unemployed, alcoholism, drug addiction, transportation, low edu. Level, literacy, decrease access to med. care, senior care, rehab)? @ -No Was there de-escalation of care discussed even if they declined? (Discuss DNR or withdrawal of care, Hospice)? @ -No What co-morbidities impacted this encounter? (DM, HTN, Smoking, COPD, CAD, Cancer, CVA, Hep., AIDS, mental health diagnosis, sleep apnea, morbid obesity)? @ - Was patient admitted / discharged? @ -Discharged. Lab work unremarkable. Beta-hCG is 10,215. Urinalysis negative for signs of infection. She is Rh+, however she denies any vaginal bleeding. Obstetrics ultrasound obtained demonstrating a twin versus a single live intrauterine with adjacent subchorionic hemorrhage. Patient is not currently having any bleeding. Findings reviewed with the patient. She does plan to follow-up with [facility] IMAGING TECHNOLOGIST for reevaluation. Advised she contact the office with these findings. Also advised Tylenol as needed for pain relief. Patient discharged home in stable condition. Case discussed with ED attending Dr. Hercules. Return precautions reviewed in depth, the patient is instructed to return to the emergency department with any new, worsening, or concerning symptoms. Patient verbalized understanding. Undiagnosed new problem with uncertain prognosis? @ -None Drug Therapy requiring intensive monitoring for toxicity (Heparin, Nitro, Insulin, Cardizem)? @ -None Were any procedures done? @ -None Diagnosis/symptom? @ -Abdominal pain in Acute, or Chronic, or Acute on Chronic? @ -Acute Uncomplicated (without systemic symptoms) or Complicated (systemic symptoms)? @ -Uncomplicated Side effects of treatment? @ -None Exacerbation, Progression, or Severe Exacerbation] @ -Not applicable Poses a threat to life or bodily function? @ -Unlikely - Lab Data Result diagrams: 04/10/24 11:23 04/10/24 11:23 Lab Results 04/10/24 04/10/24 04/10/24 Range/Units 11:23 11: 11:23 WBC 6.1 (3.8-10.6) k/uL RBC 4.89 (3.80-5.40) m/uL Hgb 14.9 (11.4-16.0) gm/dL Hct 45.2 (34.0-46.0) % MCV 92.4 (80.0-100.0) fL MCH 30.4 (25.0-35.0) pg MCHC 32.9 (31.0-37.0) g/dL RDW 13.7 (11.5-15.5) % Plt Count 203 (150-450) k/uL MPV 8.5 Neutrophils % 74 % Lymphocytes % 19 % Monocytes % 5 % Eosinophils % 1 % Basophils % 0 % Neutrophils # 4.5 (1.3-7.7) k/uL Lymphocytes # 1.2 (1.0-4.8) k/uL Monocytes # 0.3 (0-1.0) k/uL Eosinophils # 0.1 (0-0.7) k/uL Basophils # 0.0 (0-0.2) k/uL Sodium 137 (137-145) mmol/L Potassium 3.9 (3.5-5.1) mmol/L Chloride 106 (98-107) mmol/L Carbon Dioxide 25 (22-30) mmol/L Anion Gap 6 mmol/L BUN 7 (7-17) mg/dL Creatinine 0.44 L (0.52-1.04) mg/dL Est GFR (CKD-EPI)AfAm >90 (>60 ml/min/1.73 sqM) Est GFR (CKD-EPI)NonAf >90 (>60 ml/min/1.73 sqM) Glucose 90 (74-99) mg/dL Plasma Lactic Acid Nicholas (0.7-2.0) mmol/L Calcium 9.2 (8.4-10.2) mg/dL Total Bilirubin 0.5 (0.2-1.3) mg/dL AST 18 (14-36) U/L ALT 9 (4-34) U/L Alkaline Phosphatase 59 (38-126) U/L Total Protein 7.5 (6.3-8.2) g/dL Albumin 4.6 (3.5-5.0) g/dL HCG, Quant 46464.3 mIU/mL Urine Color Colorless Urine Appearance Clear (Clear) Urine pH 7.0 (5.0-8.0) Ur Specific [place] 1.002 (1.001-1.035) Urine Protein Negative (Negative) Urine Glucose (UA) Negative (Negative) Urine Ketones Negative (Negative) Urine Blood Negative (Negative) Urine Nitrite Negative (Negative) Urine Bilirubin Negative (Negative) Urine Urobilinogen <2.0 (<2.0) mg/dL Ur Leukocyte Esterase Negative (Negative) Blood Type Blood Type Recheck Bld Type Recheck Status 04/10/24 04/10/24 Range/Units 11:23 11:23 WBC (3.8-10.6) k/uL RBC (3.80-5.40) m/uL Hgb (11.4-16.0) gm/dL Hct (34.0-46.0) % MCV (80.0-100.0) fL MCH (25.0-35.0) pg MCHC (31.0-37.0) g/dL RDW (11.5-15.5) % Plt Count (150-450) k/uL MPV Neutrophils % % Lymphocytes % % Monocytes % % Eosinophils % % Basophils % % Neutrophils # (1.3-7.7) k/uL Lymphocytes # (1.0-4.8) k/uL Monocytes # (0-1.0) k/uL Eosinophils # (0-0.7) k/uL Basophils # (0-0.2) k/uL Sodium (137-145) mmol/L Potassium (3.5-5.1) mmol/L Chloride (98-107) mmol/L Carbon Dioxide (22-30) mmol/L Anion Gap mmol/L BUN (7-17) mg/dL Creatinine (0.52-1.04) mg/dL Est GFR (CKD-EPI)AfAm (>60 ml/min/1.73 sqM) Est GFR (CKD-EPI)NonAf (>60 ml/min/1.73 sqM) Glucose (74-99) mg/dL Plasma Lactic Acid Nicholas 0.9 (0.7-2.0) mmol/L Calcium (8.4-10.2) mg/dL Total Bilirubin (0.2-1.3) mg/dL AST (14-36) U/L ALT (4-34) U/L Alkaline Phosphatase (38-126) U/L Total Protein (6.3-8.2) g/dL Albumin (3.5-5.0) g/dL HCG, Quant mIU/mL Urine Color Urine Appearance (Clear) Urine pH (5.0-8.0) Ur Specific [place] (1.001-1.035) Urine Protein (Negative) Urine Glucose (UA) (Negative) Urine Ketones (Negative) Urine Blood (Negative) Urine Nitrite (Negative) Urine Bilirubin (Negative) Urine Urobilinogen (<2.0) mg/dL Ur Leukocyte Esterase (Negative) Blood Type A Positive Blood Type Recheck No Previous Record Bld Type Recheck Status [facility] - Radiology Data Radiology results: report reviewed, image reviewed Disposition Clinical Impression: Pelvic pain during Disposition: HOME SELF-CARE Instructions (If sedation given, give patient instructions): (ED), Abdominal Pain in (ED) Additional Instructions: Return to the emergency department with any new, worsening, or concerning symptoms. Take Tylenol as needed for pain relief. Follow-up with [facility] IMAGING TECHNOLOGIST. Is patient prescribed a controlled substance at d/c from ED?: No Referrals: None,Stated [Primary Care Provider] - 1-2 days Time of Disposition: 13:17
[2024-04-10 11:50] LABS: ALT 9 U/L (4-34); AST 18 U/L (14-36); African American GFR (CKD) >90 (>60 ml/min/1.73 sqM); Albumin 4.6 g/dL (3.5-5.0); Alkaline Phosphatase 59 U/L (38-126); Anion Gap 6 mmol/L; Blood Urea Nitrogen 7 mg/dL (7-17); Calcium 9.2 mg/dL (8.4-10.2); Carbon Dioxide 25 mmol/L (22-30); Chloride 106 mmol/L (98-107); Glucose 90 mg/dL (74-99); Non-African American GFR(CKD) >90 (>60 ml/min/1.73 sqM); Potassium 3.9 mmol/L (3.5-5.1); Sodium 137 mmol/L (137-145); Total Bilirubin 0.5 mg/dL (0.2-1.3); Total Protein 7.5 g/dL (6.3-8.2)
[2024-04-10 12:06] LABS: HCG,Quantitative Serum 10215.3 mIU/mL
--- NOTE | 2024-04-10 13:08 | US ---
EXAMINATION TYPE: US OB<=14wk fetus twins/travag DATE OF EXAM: 04/10/2024 COMPARISON: NONE CLINICAL INDICATION: Female, 29 years old with history of Pelvic pain in ; Pain while urinat ing hx of UTI. TECHNIQUE: Transvaginal (TV) and Transabdominal (TA) with grayscale imaging of gestations. FINDINGS: EXAM MEASUREMENTS: GESTATIONAL AGE / DATING Physician Established: Not yet established Dates by LMP: (5 weeks/6 days) EDC: 12/05/2024 Dates by First Scan: No previous this is first scan Dates by Current Scan for Baby A: (6 weeks/0 days) EDC: 12/04/2024 Dates by Current Scan for Baby B: ( 6 weeks/1 days) EDC: 12/03/2024 MATERNAL ANATOMY Uterus: 9.4 x 4.6 x 5.1 cm Right Ovary: 3.3 x 1.3 x 2.4 cm Left Ovary: 3.6 x 2.2 x 2.5 cm Post CDS / Adnexa: wnl Presence of free fluid: no Presence of corpus luteal cyst: yes Presence of subchorionic bleed: Suspected to be present. Fairly moderate to large in size relative to the size of the gestational sac. Mostly located along the left but wrapping around anteriorly and in feriorly Presence of two separate gestational sacs: yes GESTATION / SURVEY TWIN A CRL: .34 cm 6(wks/0days) Yolk Sac (normal less than 6mm): 3mm Heart Rate: 158 bpm Rhythm: Normal IUP: Viable IUP TWIN B CRL: .36 cm (6wks/1days) Yolk Sac (normal less than 6mm): Not visualized Heart Rate: no heart tones seen. Rhythm: Not seen Gestational sac: Very irregular in appearance located to the left but extending anteriorly and inferi or to the other gestational sac measuring approximately 2.4 x 1.2 x 2.4 cm. Small area of nodularity within measures 3.6 mm. IMPRESSION: The blower insulator indicates a twin . Recommend clinical correlation as to if this is a known t win gestation. Review of the images suggest a single intrauterine with adjacent moderate to large perigestational bleed measuring up to 2.4 cm. The blower insulator measures what we suspect to be a perigestational bleed as a second gestational sac. Serial beta hCG and ultrasound follow-up recommen ded to ensure ongoing viability of the normal intrauterine measuring 6 weeks 0 days by CRL. Concordant with LMP. [facility], , 04/10/2024 1:06 PM
[2024-04-10 13:21] VITALS: BP 144/89; PULSE 96; RESP 19
[2024-04-10 13:22] VITALS: TEMP 98.4
== END 2024-04-10 13:31 | disposition home or self-care (01) ==
LOC: EC 10:35
CPT/HCPCS: 36415; 76801; 76802; 76817; 80053; 81003; 83605; 84702; 85025; 86900; 86901; 99284

== ENCOUNTER → 2024-05-04 | Outpatient (CLI) | payer OTHER | END | disposition home or self-care (01) | LOC: LABWHC1 11:22 | PROVIDERS: ATTEND Obstetrics & Gynecology | DX: O02.1 Missed abortion (principal) | CPT/HCPCS: 36415; 84702 ==

== ENCOUNTER → 2024-05-07 | Outpatient (CLI) | payer OTHER ==
[2024-05-07 15:05] LABS: Basophils # (A) 0.02 X 10*3/uL (0.00-0.10); Basophils % (A) 0.3 %; Eosinophils # (A) 0.07 X 10*3/uL (0.04-0.35); Eosinophils % (A) 1.1 %; HCT 41.3 % (37.2-46.3); HGB 13.7 g/dL (12.0-15.0); Lymphocytes # (A) 1.08 X 10*3/uL (0.90-5.00); Lymphocytes % (A) 16.4 %; MCH 30.4 pg (27.0-32.0); MCHC 33.2 g/dL (32.0-37.0); MCV 91.8 FL (80.0-97.0); Mean Platelet Volume 11.6 FL (9.5-12.2); Monocytes # (A) 0.48 X 10*3/uL (0.20-1.00); Monocytes % (A) 7.3 %; NRBC Per 100 WBC 0 X 10*3/uL (0.00-0.01); Neutrophils # (A) 4.91 X 10*3/uL (1.80-7.70); Neutrophils % (A) 74.3 %; Platelet Count 188 X 10*3/uL (140-440); RDW 13.1 % (11.5-14.5)
== END | disposition home or self-care (01) ==
LOC: LABPAT 09:39
PROVIDERS: ATTEND Obstetrics & Gynecology
DX: Z01.812 Encounter for preprocedural laboratory examination (principal); O02.1 Missed abortion
CPT/HCPCS: 36415; 84702; 85025; 86850; 86900; 86901

== ENCOUNTER → 2024-05-08 | Day surgery (SDC) | payer OTHER ==
[~2024-05-08] MED LIST: HYDROmorphone 0.5 MG/0.5 ML SYRINGE IVP PRN; LIDOCAINE 1% INJ 10MG/ML (20 ML MDV) ONE; MIDAZOLAM 2 MG/2 ML VIAL ONE; PROPOFOL 10 MG/ML 20 ML VIAL IV ONE; Pre Op ABX Message 1 EACH MISC MISCELLANE ONE; diphenhydrAMINE 50 MG/ML 1 ML VIAL ONE; fentaNYL (PF) 50 MCG/ML 2 ML AMP ONE
--- NOTE | 2024-05-08 06:39 | P.HPOB ---
History of Present Illness H&P Date: 05/08/24 Chief Complaint: missed ab 29 year old presents for suction D&C after being diagnosed with missed at 9 weeks on US. Review of Systems All systems: negative Constitutional: Denies chills, Denies fever Eyes: denies blurred vision, denies pain Ears, nose, mouth and throat: Denies headache, Denies sore throat Cardiovascular: Denies chest pain, Denies shortness of breath Respiratory: Denies cough Gastrointestinal: Denies abdominal pain, Denies diarrhea, Denies nausea, Denies vomiting Genitourinary: Denies dysuria, Denies hematuria Musculoskeletal: Denies myalgias Integumentary: Denies pruritus, Denies rash Neurological: Denies numbness, Denies weakness Psychiatric: Denies anxiety, Denies depression Endocrine: Denies fatigue, Denies weight change Past Medical History Past Medical History: No Reported History Additional Past Medical History / Comment(s): mild cough. hx pre- eclampsia HTN- resolved History of Any Multi-Drug Resistant Organisms: None Reported Past Surgical History: Section Additional Past Surgical History / Comment(s): wisdom teeth, Past Anesthesia/Blood Transfusion Reactions: Postoperative Nausea & Vomiting (PONV) Additional Past Anesthesia/Blood Transfusion Reaction / Comment(s): n/v every time Smoking Status: Never smoker - Past Family History Mother History Unknown: Yes Family Medical History: Cancer Additional Family Medical History / Comment(s): cervical cancer Medications and Allergies Home Medications Medication Instructions Recorded Confirmed Type Unk Vitamin 1 tab PO DAILY 05/07/24 05/07/24 History Allergies Allergy/AdvReac Type Severity Reaction Status Date / Time sulfamethoxazole Allergy Rash/Hives Verified 05/07/24 11:06 [From Bactrim] trimethoprim [From Bactrim] Allergy Rash/Hives Verified 05/07/24 11:06 Exam Osteopathic Statement: *. No significant issues noted on an osteopathic structural exam other than those noted in the History and Physical/Consult. Intake and Output 05/07/24 05/07/24 05/08/24 14:59 22:59 06:59 Other: Weight 86.183 kg Heart: Regular rate and rhythm Lungs: Clear to auscultation bilaterally Abdomen: Soft, nontender Extremities: Negative Homans sign Assessment and Plan (1) Missed Current Visit: Yes Status: Acute Code(s): O02.1 - MISSED SNOMED Code(s): 06094944 Plan: 1. suction D&C
[2024-05-08] MEDS: DEXAMETHASONE SOD PHOSPHATE 4 MG/ML 1 ML VIAL IV ONE (07:06)
[2024-05-08] MEDS: ONDANSETRON 4 MG/2 ML VIAL IVP ONE (07:06)
[2024-05-08] MEDS: LACTATED RINGERS 1,000 ML IV SCH (07:06)
[2024-05-08] MEDS: SCOPOLAMINE 1 MG/72 HR PATCH TRANSDERM STA (07:08)
[2024-05-08] MEDS: IV FLUID CONTINUATION 1,000 ML IV ONE (07:14)
--- NOTE | 2024-05-08 07:57 | P.OP ---
Date of Procedure: 05/08/24 Preoperative Diagnosis: 1. missed Postoperative Diagnosis: 1. missed Procedure(s) Performed: suction D&C Anesthesia: MAC (LMA) Surgeon: Catherine Ray Estimated Blood Loss (ml): 200 IV fluids (ml): 300 Urine output (ml): 15 Pathology: other (products of conception) Condition: stable Disposition: PACU Operative Findings: large amount products of conception Description of Procedure: patient taken the operating room where general anesthesia was obtained without difficulty. She is prepped draped in normal sterile fashion dorsal lithotomy position, legs placed in the Marlon stirrups. Bladder drained of all urine. Weighted speculum place in vagina the anterior lip the cervix was grasped with single-tooth tenaculum. Cervix was dilated to #9 Hegar dilator. #9 curved suction curet was introduced into the uterus and passed several times removing tissue and blood. Sharp curet was gently used to ensure all tissue had been removed. Suction curet was introduced a few more times and hemostasis assured. All instruments removed from the vagina. Patient tolerated procedure well. Sponge initial counts correct 2. She was taken to recovery in stable condition.
[2024-05-08 07:58] VITALS: TEMP 97.6
[2024-05-08 09:30] VITALS: BP 126/64; PULSE 86; RESP 14
== END | disposition home or self-care (01) ==
LOC: OR 06:16
PROVIDERS: ATTEND Obstetrics & Gynecology
DX: O02.1 Missed abortion (principal); K21.9 Gastro-esophageal reflux disease without esophagitis; F41.9 Anxiety disorder, unspecified; Z87.59 Personal history of other complications of pregnancy, childbirth and the puerperium; Z79.899 Other long term (current) drug therapy; Z88.2 Allergy status to sulfonamides; Z88.1 Allergy status to other antibiotic agents
CPT/HCPCS: 88305; 59820; J2250; J1200; J1100; J2405; J2003; J3010; J2704